=== PATIENT | female | born 1965 | race Caucasian/White ===

== ENCOUNTER 2021-04-17 11:43 | Emergency (ER) | payer OTHER ==
[2021-04-17] MEDS ORDERED: IBUPROFEN800 MG PO (13:22)
[2021-04-17] MEDS ORDERED: CYCLOBENZAPRINE10 MG PO (13:22)
== END 2021-04-17 13:35 | disposition home or self-care (01) ==
LOC: ER1 11:43
DX: S46.912A Strain of unspecified muscle, fascia and tendon at shoulder and upper arm level, left arm, initial encounter (principal); S70.02XA Contusion of left hip, initial encounter; V49.40XA Driver injured in collision with unspecified motor vehicles in traffic accident, initial encounter; Y92.410 Unspecified street and highway as the place of occurrence of the external cause
CPT/HCPCS: 73502; 96372; 99283; J1885